=== PATIENT | male | born 1980 | race African-American/Black ===

== ENCOUNTER 2017-03-02 22:34 | Inpatient (IN) | payer SELFPAY ==
[~2017-03-02] VITALS: Ht 172.7 cm; Wt 81.2 kg
[2017-03-03 10:16] LABS: PLATELET COUNT 144 x10^3mcL (130-400)
[2017-03-03 10:22] LABS: RED CELL DISTRIBUTION WIDTH 14.8 % (11.5-14.5)
[2017-03-03 10:34] LABS: BAND NEUTROPHIL 11 % (0-10); BASOPHIL 1 % (0-2); MONOCYTE 3 % (0-7); SEGMENTED NEUTROPHILS 80 % (37-75)
[2017-03-03 10:35] LABS: rbc morphology (normal/abnorm) ABNORMAL (NORMAL)
[2017-03-03 10:36] LABS: PLATELET MORPHOLOGY PLATELETS DECREASED
[2017-03-03 11:02] LABS: ALKALINE PHOSPHATASE 438 U/L (46-116); ALT/SGPT 273 U/L (16-63); AST/SGOT 329 U/L (15-37); BILIRUBIN TOTAL 1.87 mg/dL (0.20-1.00); CALCIUM 8.8 mg/dL (8.5-10.1); CARBON DIOXIDE 19.5 mmol/L (21-32); CHLORIDE SERUM 79 mmol/L (98-107); CREATININE SERUM 1.1 mg/dL (0.7-1.3); GFR1 > 60 mL/min; GLUCOSE SERUM 100 mg/dL (74-106); POTASSIUM SERUM 4.4 mmol/L (3.5-5.1); TOTAL PROTEIN, SERUM 6.4 g/dL (6.4-8.2)
[2017-03-03 11:05] LABS: ALBUMIN 2.1 g/dL (3.4-5.0)
[2017-03-03 11:06] LABS: SODIUM SERUM 117 mmol/L (136-145)
[2017-03-03 13:17] LABS: T3 TOTAL 0.41 ng/mL
[2017-03-03 14:15] LABS: LIPASE 250 IU/L (73-393); MAGNESIUM 1.5 mg/dL (1.8-2.4)
[2017-03-03 14:21] LABS: AMYLASE 262 U/L (25-115); CHOLESTEROL 334 mg/dL (<200); CHOLESTEROL/HDL RATIO 18.6; HDL CHOLESTEROL 18 mg/dL (40-60); TRIGLYCERIDES 901 mg/dL (<150)
[2017-03-03 14:23] LABS: FREE T4 1.16 ng/dL (0.76-1.46)
[2017-03-03 14:25] LABS: FREE THYROXINE INDEX 1.9 ug/dL (1.4-4.5); T4(THYROXINE) 4.6 ug/dL (4.7-13.3)
[2017-03-03 15:14] LABS: CALCIUM 8.7 mg/dL (8.5-10.1); CARBON DIOXIDE 23.5 mmol/L (21-32); CHLORIDE SERUM 83 mmol/L (98-107); CREATININE SERUM 0.9 mg/dL (0.7-1.3); GFR1 > 60 mL/min; GLUCOSE SERUM 88 mg/dL (74-106); POTASSIUM SERUM 3.6 mmol/L (3.5-5.1)
[2017-03-03] MEDS ORDERED: MULTIVITAMIN1 SGL PO (15:15)
[2017-03-03 15:17] LABS: SODIUM SERUM 120 mmol/L (136-145)
[2017-03-03 16:27] VITALS: BP 135/69
[2017-03-03 16:31] VITALS: Ht 172.7 cm; Wt 81.2 kg
[2017-03-03 17:54] LABS: CALCIUM 8.7 mg/dL (8.5-10.1); CARBON DIOXIDE 21.7 mmol/L (21-32); CHLORIDE SERUM 85 mmol/L (98-107); CREATININE SERUM 0.8 mg/dL (0.7-1.3); GFR1 > 60 mL/min; GLUCOSE SERUM 77 mg/dL (74-106)
[2017-03-03 17:58] LABS: SODIUM SERUM 122 mmol/L (136-145)
[2017-03-03 18:00] LABS: RED BLOOD CELLS 2.2 M/mm3 (4.52-5.90)
[2017-03-03 19:11] LABS: IRON 27 ug/dL (65-170); TOTAL IRON BINDING CAPACITY 110 ug/dL (250-450)
[2017-03-03 21:56] LABS: CALCIUM 8.4 mg/dL (8.5-10.1); CARBON DIOXIDE 27.7 mmol/L (21-32); CHLORIDE SERUM 88 mmol/L (98-107); CREATININE SERUM 0.8 mg/dL (0.7-1.3); GFR1 > 60 mL/min; GLUCOSE SERUM 118 mg/dL (74-106); POTASSIUM SERUM 3.8 mmol/L (3.5-5.1); SODIUM SERUM 126 mmol/L (136-145)
[2017-03-04 01:39] LABS: CALCIUM 8.7 mg/dL (8.5-10.1); CHLORIDE SERUM 90 mmol/L (98-107); CREATININE SERUM 0.8 mg/dL (0.7-1.3); GFR1 > 60 mL/min; GLUCOSE SERUM 149 mg/dL (74-106); POTASSIUM SERUM 3.7 mmol/L (3.5-5.1); SODIUM SERUM 127 mmol/L (136-145)
[2017-03-04 04:59] VITALS: BP 126/83
[2017-03-04 08:55] LABS: CALCIUM 9.2 mg/dL (8.5-10.1); CARBON DIOXIDE 21.2 mmol/L (21-32); CHLORIDE SERUM 89 mmol/L (98-107); CREATININE SERUM 0.9 mg/dL (0.7-1.3); GFR1 > 60 mL/min; GLUCOSE SERUM 231 mg/dL (74-106); MAGNESIUM 1.9 mg/dL (1.8-2.4); PHOSPHOROUS 2.8 mg/dL (2.5-4.9); POTASSIUM SERUM 3.5 mmol/L (3.5-5.1); SODIUM SERUM 127 mmol/L (136-145)
[2017-03-04 09:13] LABS: PLATELET COUNT 143 x10^3mcL (130-400)
[2017-03-04 09:29] LABS: RED CELL DISTRIBUTION WIDTH 14.9 % (11.5-14.5)
[2017-03-04 09:32] LABS: BAND NEUTROPHIL 6 % (0-10); BASOPHIL 0 % (0-2); MONOCYTE 4 % (0-7); PLATELET MORPHOLOGY PLATELETS DECREASED; SEGMENTED NEUTROPHILS 81 % (37-75); rbc morphology (normal/abnorm) ABNORMAL (NORMAL)
[2017-03-04 10:00] VITALS: BP 127/82
[2017-03-04 12:36] LABS: CALCIUM 8.4 mg/dL (8.5-10.1); CARBON DIOXIDE 26.4 mmol/L (21-32); CHLORIDE SERUM 86 mmol/L (98-107); CREATININE SERUM 0.9 mg/dL (0.7-1.3); GFR1 > 60 mL/min; GLUCOSE SERUM 197 mg/dL (74-106); POTASSIUM SERUM 3.5 mmol/L (3.5-5.1); SODIUM SERUM 125 mmol/L (136-145)
[2017-03-04 16:39] LABS: UA SPECIFIC GRAVITY <=1.005 (1.005-1.035); microscopic required? YES; urine erythrocyte NEGATIVE (NEGATIVE)
[2017-03-04 17:07] LABS: AMPHETAMINE QUAL UR NONE DETECTED (NEG <=1000)
[2017-03-04 17:21] VITALS: BP 113/77
[2017-03-04 20:43] VITALS: BP 126/82
[2017-03-05 05:41] VITALS: BP 104/65
[2017-03-05 07:25] LABS: PLATELET COUNT 158 x10^3mcL (130-400); RED CELL DISTRIBUTION WIDTH 15.1 % (11.5-14.5)
[2017-03-05 07:27] LABS: CALCIUM 9.2 mg/dL (8.5-10.1); CARBON DIOXIDE 27.5 mmol/L (21-32); CHLORIDE SERUM 90 mmol/L (98-107); CREATININE SERUM 0.8 mg/dL (0.7-1.3); GFR1 > 60 mL/min; GLUCOSE SERUM 135 mg/dL (74-106); MAGNESIUM 1.7 mg/dL (1.8-2.4); PHOSPHOROUS 1.8 mg/dL (2.5-4.9); SODIUM SERUM 127 mmol/L (136-145)
[2017-03-05 09:02] LABS: BAND NEUTROPHIL 12 % (0-10); BASOPHIL 0 % (0-2); METAMYELOCTE 2 % (0-2); MONOCYTE 4 % (0-7); MYELOCYTE 1 % (0-2); SEGMENTED NEUTROPHILS 59 % (37-75); rbc morphology (normal/abnorm) ABNORMAL (NORMAL)
[2017-03-05 09:04] LABS: target cell (codocyte) 1+
[2017-03-05 10:18] VITALS: BP 111/72
[2017-03-05] MEDS ORDERED: LIPI20 PO (10:59)
[2017-03-05] MEDS ORDERED: MAG PO (11:04)
[2017-03-05] MEDS ORDERED: COL100 PO (11:05)
[2017-03-05] MEDS ORDERED: FOL1 PO (11:07)
[2017-03-05] MEDS ORDERED: NEP PO (11:08)
[2017-03-05] MEDS ORDERED: THI100 PO (11:08)
[2017-03-05] MEDS ORDERED: ATI1 PO (11:14)
[2017-03-05 13:30] VITALS: BP 137/82
[2017-03-05 14:58] VITALS: BP 137/82
== END 2017-03-05 15:26 | disposition home or self-care (01) | DRG 441 ==
LOC: ED 22:34 → DU 03-03 11:41
PROVIDERS: Emergency Medicine; Family Medicine; Student in an Organized Health Care Education/Training Program
DX: K72.90 Hepatic failure, unspecified without coma (principal); E43 Unspecified severe protein-calorie malnutrition; K85.90 Acute pancreatitis without necrosis or infection, unspecified; F10.239 Alcohol dependence with withdrawal, unspecified; E87.1 Hypo-osmolality and hyponatremia; E72.20 Disorder of urea cycle metabolism, unspecified; E87.2 Acidosis; Z88.1 Allergy status to other antibiotic agents; J45.909 Unspecified asthma, uncomplicated; D64.9 Anemia, unspecified; K70.9 Alcoholic liver disease, unspecified; K70.10 Alcoholic hepatitis without ascites; E78.2 Mixed hyperlipidemia; E03.9 Hypothyroidism, unspecified; E83.42 Hypomagnesemia; E83.39 Other disorders of phosphorus metabolism; R31.9 Hematuria, unspecified; Z68.27 Body mass index [BMI] 27.0-27.9, adult
CPT/HCPCS: 83880; 84439; 97110-GP; 97116-GP; 97530-GP; G0480; J2060; J3490; J7030; J7510; J7512; Q0092